=== PATIENT | female | born 1990 | race Caucasian/White ===

== ENCOUNTER 2019-05-24 13:04 | Emergency (ER) | payer SELFPAY ==
[~2019-05-24] VITALS: Ht 154.9 cm; Wt 72.6 kg
[2019-05-24 13:12] VITALS: Ht 154.9 cm; Wt 72.6 kg
[2019-05-24 15:16] VITALS: BP 125/71
== END 2019-05-24 15:16 | disposition home or self-care (01) ==
LOC: ED 13:04
DX: J20.9 Acute bronchitis, unspecified (principal)
CPT/HCPCS: J7512; J7613; J7644

== ENCOUNTER 2020-08-19 22:41 | Emergency (ER) | payer SELFPAY ==
[~2020-08-19] VITALS: Ht 154.9 cm; Wt 81.7 kg
[2020-08-19 22:50] VITALS: Ht 154.9 cm; Wt 81.7 kg
[2020-08-20 00:48] VITALS: BP 123/75
== END 2020-08-20 00:48 | disposition home or self-care (01) ==
LOC: ED 22:41
DX: R30.0 Dysuria (principal); R35.0 Frequency of micturition; R31.9 Hematuria, unspecified; R10.9 Unspecified abdominal pain; R50.9 Fever, unspecified